=== PATIENT | male | born 1985 | race Caucasian/White ===

== ENCOUNTER → 2021-07-28 | Outpatient (CLI) | payer MEDICAID, SELFPAY ==
--- NOTE | 2021-07-28 11:28 | REP ---
INDICATION: CHEST PAIN, UNSPECIFIED COMPARISON: 06/21/2007 TECHNIQUE: PA and lateral. FINDINGS: The mediastinum and cardiac silhouette are normal. The lung cifuentes are clear and without acute consolidation, effusion, or pneumothorax. The skeletal structures are intact and normal. IMPRESSION: No acute cardiopulmonary process. <Electronically signed by Maurice Gabriel > 07/28/21 [id number]
== END ==
LOC: M WUC 11:02
PROVIDERS: ATTEND Physician Assistant
DX: R07.9 Chest pain, unspecified (principal)

== ENCOUNTER 2021-09-04 14:51 | Emergency (ER) | payer MEDICAID ==
[~2021-09-04] VITALS: Ht 167.6 cm; Wt 70.8 kg
[2021-09-04] MEDS ORDERED: ALBU83IN (15:06)
[2021-09-04] MEDS ORDERED: ALBU8.5H (15:06)
[2021-09-04] MEDS ORDERED: OMEP-218 (15:06)
[2021-09-04] MEDS ORDERED: KETOROLAC 30 MG/ML 1ML VIAL IV ONE (16:40)
[2021-09-04 16:59] LABS: BASO # 0.1 10^3/uL (0.0-0.2); BASO % 1.8 % (0.0-1.0); EOS # 0.6 10^3/uL (0.0-0.5); EOS % 9.3 % (0.0-3.0); HEMOGLOBIN 14.8 g/dl (13.5-17.5); LYMPH # 2.7 10^3/uL (1.5-5.0); LYMPH % 39.9 % (24.0-44.0); MEAN CORPUSCULAR HEMOGLOBIN 30.1 pg (27.0-33.0); MEAN CORPUSCULAR HGB CONC 34.4 g/dl (32.0-36.5); MEAN CORPUSCULAR VOLUME 87.4 fl (80.0-96.0); MONO # 0.7 10^3/uL (0.0-0.8); MONO % 10.4 % (2.0-8.0); NEUTROPHILS # 2.6 10^3/uL (1.5-8.5); NEUTROPHILS % 38.5 % (36.0-66.0); PLATELET COUNT, AUTOMATED 259 10^3/uL (150-450); RED BLOOD COUNT 4.92 10^6/uL (4.30-6.10); WHITE BLOOD COUNT 6.8 10^3/uL (4.0-10.0)
--- NOTE | 2021-09-04 17:02 | REP ---
INDICATION: CHEST PAIN COMPARISON: 07/28/2021 TECHNIQUE: Portable AP view of the chest FINDINGS: The mediastinum and cardiac silhouette are stable and within normal limits for portable technique. The lung cifuentes are clear without acute consolidation, effusion, or pneumothorax. Skeletal structures are intact. IMPRESSION: No acute cardiopulmonary process appreciated. <Electronically signed by Maurice Gabriel > 09/04/21 [id number]
[2021-09-04 17:07] LABS: ALBUMIN 4.2 GM/DL (3.2-5.2); ALT/SGPT 35 U/L (12-78); BILIRUBIN,DIRECT 0.2 MG/DL (0.0-0.2); BILIRUBIN,TOTAL 1.2 MG/DL (0.2-1.0); BLOOD UREA NITROGEN 19 MG/DL (7-18); CALCIUM LEVEL 9.2 MG/DL (8.5-10.1); CARBON DIOXIDE LEVEL 30 MEQ/L (21-32); CHLORIDE LEVEL 105 MEQ/L (98-107); CK-MB VALUE MASS 1.3 NG/ML (<3.6); GLOMERULAR FILTRATION RATE > 60.0 (>60); GLUCOSE, FASTING 71 MG/DL (70-100); LIPASE 188 U/L (73-393); MB/CK RELATIVE INDEX 0.83 (< OR =4); NT-PRO BNP 23 PG/ML (<125); POTASSIUM SERUM 4.2 MEQ/L (3.5-5.1); SODIUM LEVEL 140 MEQ/L (136-145); TOTAL PROTEIN 7.2 GM/DL (6.4-8.2)
[2021-09-04 17:45] VITALS: BP 108/65
--- NOTE | 2021-09-05 07:49 | ECGEPIP ---
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
== END 2021-09-04 18:27 | disposition home or self-care (01) ==
LOC: M ED 14:51
DX: R07.89 Other chest pain (principal); J45.909 Unspecified asthma, uncomplicated; F41.9 Anxiety disorder, unspecified; F32.9 Major depressive disorder, single episode, unspecified; F17.200 Nicotine dependence, unspecified, uncomplicated; R06.02 Shortness of breath; J30.2 Other seasonal allergic rhinitis
CPT/HCPCS: 71045; 80048; 80076; 82550; 82553; 83690; 83880; 85025; 93005; 93041; 94760; 96374; 99284; J1885

== ENCOUNTER → 2022-05-25 | Outpatient (REF) | payer OTHER, MEDICAID ==
[~2022-05-25] MED LIST: ALBU2.5V10; ALBU8.5H; OMEP-173
[2022-05-25 12:36] LABS: BASO # 0.1 10^3/uL (0.0-0.2); BASO % 1.5 % (0.0-1.0); EOS # 0.3 10^3/uL (0.0-0.5); EOS % 4.3 % (0.0-3.0); HEMATOCRIT 42.6 % (42.0-52.0); HEMOGLOBIN 14.6 g/dl (13.5-17.5); LYMPH # 3.7 10^3/uL (1.5-5.0); LYMPH % 51.3 % (24.0-44.0); MEAN CORPUSCULAR HEMOGLOBIN 29.7 pg (27.0-33.0); MEAN CORPUSCULAR HGB CONC 34.3 g/dl (32.0-36.5); MEAN CORPUSCULAR VOLUME 86.6 fl (80.0-96.0); MONO # 0.4 10^3/uL (0.0-0.8); MONO % 4.8 % (2.0-8.0); NEUTROPHILS # 2.7 10^3/uL (1.5-8.5); NEUTROPHILS % 37.5 % (36.0-66.0); PLATELET COUNT, AUTOMATED 316 10^3/uL (150-450); RED BLOOD COUNT 4.92 10^6/uL (4.30-6.10); WHITE BLOOD COUNT 7.2 10^3/uL (4.0-10.0)
[2022-05-25 13:10] LABS: ALBUMIN 4.3 GM/DL (3.2-5.2); ALT/SGPT 81 U/L (12-78); BILIRUBIN,TOTAL 1.2 MG/DL (0.2-1.0); BLOOD UREA NITROGEN 19 MG/DL (7-18); CALCIUM LEVEL 9.5 MG/DL (8.5-10.1); CARBON DIOXIDE LEVEL 31 MEQ/L (21-32); CHLORIDE LEVEL 102 MEQ/L (98-107); CREATININE FOR GFR 0.73 MG/DL (0.70-1.30); GLOMERULAR FILTRATION RATE > 60.0 (>60); GLUCOSE, FASTING 141 MG/DL (70-100); LIPASE 161 U/L (73-393); SODIUM LEVEL 136 MEQ/L (136-145); TOTAL PROTEIN 7.4 GM/DL (6.4-8.2)
== END ==
LOC: M WUC 12:08
PROVIDERS: ATTEND Physician Assistant
DX: R10.9 Unspecified abdominal pain (principal)

== ENCOUNTER → 2023-02-08 | Outpatient (REF) | payer OTHER, MEDICAID ==
[2023-02-08 18:30] LABS: BASO # 0.1 10^3/uL (0.0-0.2); BASO % 1.9 % (0.0-1.0); EOS # 0.4 10^3/uL (0.0-0.5); EOS % 5.8 % (0.0-3.0); HEMATOCRIT 43.5 % (42.0-52.0); HEMOGLOBIN 14.6 g/dl (13.5-17.5); LYMPH # 2.5 10^3/uL (1.5-5.0); LYMPH % 39.3 % (24.0-44.0); MEAN CORPUSCULAR HEMOGLOBIN 29.6 pg (27.0-33.0); MEAN CORPUSCULAR HGB CONC 33.6 g/dl (32.0-36.5); MEAN CORPUSCULAR VOLUME 88.1 fl (80.0-96.0); MONO # 0.5 10^3/uL (0.0-0.8); MONO % 7.9 % (2.0-8.0); NEUTROPHILS # 2.8 10^3/uL (1.5-8.5); NEUTROPHILS % 44.6 % (36.0-66.0); PLATELET COUNT, AUTOMATED 250 10^3/uL (150-450); RED BLOOD COUNT 4.94 10^6/uL (4.30-6.10); WHITE BLOOD COUNT 6.4 10^3/uL (4.0-10.0)
[2023-02-08 18:35] LABS: ALBUMIN 4.4 G/DL (3.2-5.2); ALKALINE PHOSPHATASE 75 U/L (46-116); ALT/SGPT 31 U/L (7.0-40); AST/SGOT 22 U/L (<34); BILIRUBIN,TOTAL 1.7 MG/DL (0.3-1.2); BLOOD UREA NITROGEN 16 MG/DL (9-23); CALCIUM LEVEL 9.2 MG/DL (8.5-10.1); CARBON DIOXIDE LEVEL 30 MMOL/L (20-31); CHLORIDE LEVEL 107 MMOL/L (98-107); CREATININE FOR GFR 0.79 MG/DL (0.70-1.30); GLOMERULAR FILTRATION RATE > 60.0 (>60); GLUCOSE, FASTING 59 MG/DL (60-100); POTASSIUM SERUM 4.2 MMOL/L (3.5-5.1); SODIUM LEVEL 143 MMOL/L (136-145)
[2023-02-08 18:36] LABS: FREE T4 0.94 NG/DL (0.89-1.76); THYROID STIMULATING HORMONE 0.889 uIU/ML (0.55-4.78)
[2023-02-08 18:37] LABS: VITAMIN B12 LEVEL 896 PG/ML (211-911)
[2023-02-08 18:50] LABS: ERYTHROCYTE SEDIMENTATION RATE 6 mm/hr (0-15)
== END ==
LOC: M LAB REF 17:43
PROVIDERS: ATTEND Family Medicine Addiction Medicine
DX: G47.59 Other parasomnia (principal); R20.2 Paresthesia of skin

== ENCOUNTER 2023-12-27 20:52 | Emergency (ER) | payer OTHER, MEDICAID ==
[~2023-12-27] VITALS: Ht 167.6 cm; Wt 73.1 kg
[2023-12-27] MEDS ORDERED: LEXA1TAB (22:00)
[2023-12-27 22:17] LABS: BASO # 0.1 10^3/uL (0.0-0.2); BASO % 1.5 % (0.0-1.0); EOS # 0.2 10^3/uL (0.0-0.5); HEMATOCRIT 43.9 % (42.0-52.0); HEMOGLOBIN 15.1 g/dl (13.5-17.5); LYMPH # 2.8 10^3/uL (1.5-5.0); LYMPH % 38.1 % (24.0-44.0); MEAN CORPUSCULAR HEMOGLOBIN 30.3 pg (27.0-33.0); MEAN CORPUSCULAR HGB CONC 34.4 g/dl (32.0-36.5); MEAN CORPUSCULAR VOLUME 88.2 fl (80.0-96.0); MONO # 0.6 10^3/uL (0.0-0.8); MONO % 8.4 % (2.0-8.0); NEUTROPHILS # 3.6 10^3/uL (1.5-8.5); NEUTROPHILS % 48.7 % (36.0-66.0); PLATELET COUNT, AUTOMATED 228 10^3/uL (150-450); RED BLOOD COUNT 4.98 10^6/uL (4.30-6.10); WHITE BLOOD COUNT 7.4 10^3/uL (4.0-10.0)
[2023-12-27 22:44] LABS: CPK CREATINE PHOSPHOKINASE 164 U/L (46-171)
[2023-12-27 22:45] LABS: BLOOD UREA NITROGEN 18 MG/DL (9-23); CALCIUM LEVEL 9.8 MG/DL (8.5-10.1); CARBON DIOXIDE LEVEL 30 MMOL/L (20-31); CHLORIDE LEVEL 102 MMOL/L (98-107); CK-MB VALUE MASS < 1.0 NG/ML (<3.6); CREATININE FOR GFR 0.87 MG/DL (0.70-1.30); GLOMERULAR FILTRATION RATE > 60.0 (>60); GLUCOSE, FASTING 89 MG/DL (60-100); MAGNESIUM LEVEL 2.2 MG/DL (1.8-2.4); POTASSIUM SERUM 3.8 MMOL/L (3.5-5.1); SODIUM LEVEL 138 MMOL/L (136-145)
[2023-12-27] MEDS ORDERED: ISOVUE-370 76% 100ML VIAL As Ordered ONE (23:22)
[2023-12-28] MEDS: KETOROLAC 30 MG/ML 1ML VIAL IV ONE (01:09)
[2023-12-28 01:45] VITALS: BP 99/65; TEMP 97.9; O2SAT 97
== END 2023-12-28 01:58 | disposition home or self-care (01) ==
LOC: M ED 20:52
DX: R07.89 Other chest pain (principal); F32.A Depression, unspecified; J30.2 Other seasonal allergic rhinitis
CPT/HCPCS: 36415; 71275; 80048; 82550; 82553; 83735; 85025; 85379; 93005; 96374; 99283; 99284; J1885; Q9967

== ENCOUNTER 2024-08-05 06:53 | Emergency (ER) | payer OTHER ==
[~2024-08-05] VITALS: Ht 167.6 cm; Wt 66.2 kg
[~2024-08-05 06:53] MED LIST changes: +LEXA1TAB
[2024-08-05] MEDS: NORCO, ANEXSIA 5/325MG TABLET (HYDROcodone/ACETAMINOPHEN) PO ONE (09:05)
[2024-08-05] MEDS: IBUPROFEN 600MG TAB PO ONE (09:29)
[2024-08-05 10:06] VITALS: BP 127/74; TEMP 98; O2SAT 98
== END 2024-08-05 10:08 | disposition home or self-care (01) ==
LOC: M ED 06:53
DX: S22.32XA Fracture of one rib, left side, initial encounter for closed fracture (principal); W00.0XXA Fall on same level due to ice and snow, initial encounter; Y92.410 Unspecified street and highway as the place of occurrence of the external cause; Y93.9 Activity, unspecified; Y99.9 Unspecified external cause status; J45.909 Unspecified asthma, uncomplicated; F32.A Depression, unspecified; F41.9 Anxiety disorder, unspecified

== ENCOUNTER 2024-08-07 09:23 | Emergency (ER) | payer OTHER ==
[~2024-08-07] VITALS: Ht 167.6 cm; Wt 65.3 kg
[2024-08-07 09:26] VITALS: TEMP 97.8
[2024-08-07] MEDS: methylPREDNISolone 125MG 2ML VIAL IM ONE (12:00)
[2024-08-07] MEDS ORDERED: METH-1165 PO (12:13)
[2024-08-07 12:27] VITALS: BP 134/86; O2SAT 98
[2024-08-08] MEDS ORDERED: BUPR150T12 (15:56)
[2024-08-08] MEDS ORDERED: BUPR1FIL37 (15:56)
== END 2024-08-07 12:28 | disposition home or self-care (01) ==
LOC: M ED 09:23
DX: S22.32XA Fracture of one rib, left side, initial encounter for closed fracture (principal); W01.0XXA Fall on same level from slipping, tripping and stumbling without subsequent striking against object, initial encounter; Y92.410 Unspecified street and highway as the place of occurrence of the external cause; Y93.01 Activity, walking, marching and hiking; Y99.9 Unspecified external cause status; J45.909 Unspecified asthma, uncomplicated; Z79.899 Other long term (current) drug therapy
CPT/HCPCS: 96372; 99283; J2919

== ENCOUNTER 2024-08-08 15:43 | Emergency (ER) | payer OTHER ==
[~2024-08-08] VITALS: Ht 167.6 cm; Wt 66.4 kg
[~2024-08-08 15:43] MED LIST changes: +METH-1165 PO
[2024-08-08] MEDS ORDERED: BUPR1FIL37 (15:56)
[2024-08-08] MEDS ORDERED: BUPR150T12 (15:56)
[2024-08-08] MEDS ORDERED: MORPHINE 10 MG/ML 1ML VIAL IM ONE (17:15)
[2024-08-08] MEDS: traMADol 50 MG TAB PO ONE (17:22)
[2024-08-08 19:32] VITALS: BP 129/85; TEMP 97.3; O2SAT 100
== END 2024-08-08 19:33 | disposition home or self-care (01) ==
LOC: M ED 15:43
DX: S20.222A Contusion of left back wall of thorax, initial encounter (principal); W00.0XXA Fall on same level due to ice and snow, initial encounter; Y92.9 Unspecified place or not applicable; Y93.9 Activity, unspecified; Y99.9 Unspecified external cause status; F41.9 Anxiety disorder, unspecified; F32.A Depression, unspecified; J30.2 Other seasonal allergic rhinitis; Z79.899 Other long term (current) drug therapy